=== PATIENT | female | born 1990 | race Caucasian/White ===

== ENCOUNTER 2020-01-12 16:39 | Emergency (ER) | payer OTHER, SELFPAY ==
[2020-01-12 17:01] VITALS: BP 114/99; PULSE 104; RESP 18; TEMP 36.3; O2SAT 97
[2020-01-12] MEDS: TETANUS,DIPHTHERIA,AC PERTUSSIS ADULT (0.5 ML) BOOSTRIX IM (17:11)
--- NOTE | 2020-01-12 17:24 | ED.GENADULT ---
HPI - General Adult General Chief complaint: Animal Bite Stated complaint: animal bite Time Seen by Provider: 01/12/20 17:17 Source: patient and RN notes reviewed Mode of arrival: ambulatory Limitations: no limitations History of Present Illness HPI narrative: 29-year-old female presents with complaints of dog bite ([place]) to RT buttock area today. No treatment. Mild abrasions, bruising, tenderness, and swelling. Denies tingling or numbness. Exacerbating factor consists of palpation of area. No relieving factors. Denies altered sensation, back pain, neck pain, and suspected foreign body. Denies falling, hitting head, or loss of consciousness. LMP 1 week ago. Remains active. Tetanus vaccine NOT up to date, will do today. 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 The patient reports she have not been diagnosed with COVID-19. The patient reports she is not waiting for the results of a COVID-19 lab test. The patient reports she do not have fever, chills, weakness, or fatigue. The patient reports she do not have a new or worsening cough or shortness of breath. Denies chest pain. The patient reports she do not have any rhinorrhea, congestion, sore throat, loss of taste, nausea, vomiting, abdominal pain, and diarrhea. Tolerating po intake well. Denies recent traveling. Denies concerns for COVID-19 or exposures been home with limited outdoor exposure except for essential household needs, work, and return home. At this time, patient is not suspected of having COVID-19. Some parts of this dictation were generated by voice recognition software and may contain typographical and/or grammatical inaccuracies. Related Data Allergies Allergy/AdvReac Type Severity Reaction Status Date / Time NKDA Allergy Mild Unknown Uncoded 09/21/19 13:26 Review of Systems Review of Systems: Narrative: CONSTITUTIONAL: Denies fever, chills, sweats. EYES: Denies visual changes, redness, discharge. ENT: Denies rhinorrhea, congestion, sore throat, otalgia. CARDIOVASCULAR: Denies chest pain, palpitations, edema. RESPIRATORY: Denies dyspnea, wheezing, cough. GASTROINTESTINAL: Denies abdominal pain, nausea, vomiting, diarrhea. SKIN: Denies rash or itching. Complains of animal bite to RT buttock with mild redness, swelling, discomfort. No drainage MUSCULOSKELETAL: Denies acute back pain, joint pain, or myalgia. NEUROLOGIC: Denies numbness or focal weakness. PSYCHIATRIC: Denies anxiety or depression. All other systems reviewed are negative, except as documented in HPI and below. FORMERLY [facility], [facility]–1983 Past Medical History Medical History (Updated 01/15/20 @ 21:19 by BENOIT Bonilla) Anxiety Depression Hypothyroidism Migraine without aura and without status migrainosus, not intractable Surgical History Surgical History (Updated 01/15/20 @ 21:19 by BENOIT Bonilla) History of dental surgery Family History Family History Other Diabetes mellitus Family history of coronary artery disease Family history of elevated blood lipids Social History Social History (Updated 01/15/20 @ 21:24 by BENOIT Bonilla) Smoking status: Never smoker Tobacco type: cigarettes Second hand tobacco smoke exposure: No Alcohol intake: current Substance use: never Living arrangements: with family Occupation/Education: unemployed Gender identity (if verbalized by the patient): Female Exam Narrative: Exam Narrative: GENERAL: This is a well-nourished, well-developed patient, in no apparent distress. Talks in full sentences without deficits and ambulates with steady gait without dyspnea. HEAD: normocephalic, atraumatic. EYES: PERRL. Sclera clear/white. Vision is grossly intact. CARDIOVASCULAR: Regular rate and rhythm without murmurs, gallops, or rubs. RESPIRATORY: Clear to auscultation. Breath sounds equal bilaterally. No wheezes, rales, or rhonchi. GASTROINTESTIN
== END 2020-01-12 17:36 | disposition home or self-care (01) ==
PROVIDERS: Emergency Provider Nurse Practitioner Family; PCP Family Medicine
DX: S31.815A Open bite of right buttock, initial encounter (principal); W54.0XXA Bitten by dog, initial encounter; Z23 Encounter for immunization; E03.9 Hypothyroidism, unspecified
CPT/HCPCS: 90471; 90715; 99213; G0463